=== PATIENT | female | born 1940 | race Caucasian/White ===

== ENCOUNTER 2016-11-22 16:05 | Observation (INO) | payer OTHER ==
[~2016-11-22] VITALS: Ht 165.1 cm; Wt 101.5 kg
[~2016-11-22 16:05] MED LIST: AMBIEN10 MG PO; BENTYL10 MG PO; BUSPIRONE HCL15 MG PO; LEXAPRO20 MG PO; LYRICA75 MG PO; MELOXICAM15 MG PO; METFORMIN HCL500 MG PO; MIRALAX255 GM PO; NEXIUM40 MG PO; NORCO 5/3251 TABLET PO; OXYCODONE-APAP1 EACH PO; OXYCONTIN60 MG PO; SYNTHROID25 MCG PO
[2016-11-22 17:33] LABS: HEMATOCRIT 44.3 % (36.0-46.0); MCH 28.8 PG (29.0-34.0); MCHC 32.3 G/DL (30.0-36.0); MCV 89.1 FL (83-99); MEAN PLAT.VOLUME 10.1 uM^3 (9.5-12.4); PLATELET COUNT 254 K/uL (156-360); RBC DIS.WIDTH-CV 12.4 % (11.8-14.6); RBC DIS.WIDTH-SD 40.6 % (39-53); RED BLOOD COUNT 4.97 M/uL (3.80-5.20); WHITE BLOOD COUNT 13.5 K/uL (4.1-10.2)
[2016-11-22 20:12] LABS: CHLORIDE 104 mEq/L (99-109); POTASSIUM 4.7 mEq/L (3.7-5.4); SODIUM 139 mEq/L (136-147)
[2016-11-22 20:14] LABS: GLUCOSE 116 mg/dL (70-99)
[2016-11-22 20:16] LABS: ANION GAP 10 MEQ/L (2-14); TOTAL BILIRUBIN 0.4 mg/dL (0.0-1.0)
[2016-11-22 20:18] LABS: ALKALINE PHOSPHATASE 95 IU/L (3-129); GFR ESTIMATE (CALCULATED) > 59 mL/min/
[2016-11-22 20:19] LABS: UREA NITROGEN (BUN) 23 mg/dL (9-23)
[2016-11-22 20:21] LABS: LIPASE 449 U/L (1.0-51.0)
[2016-11-22 22:11] LABS: ADD MIUA? YES; BILIRUBIN NEGATIVE; BLOOD NEGATIVE; COLOR YELLOW ((YELLOW)); GLUCOSE (STRIP) NEGATIVE; KETONES NEGATIVE; LEUKOCYTES LARGE; NITRITE NEGATIVE; PROTEIN (STRIP) NEGATIVE; UROBILINOGEN 0.2 MG/DL (0.2-1.0)
[2016-11-22 22:20] LABS: BACTERIA RARE /HPF; EPITHELIAL CELLS 1+ /HPF; MUCUS NONE SEEN /LPF; UCUL ADDED? NO; WHITE BLOOD CELLS 40-50 /HPF (0-5)
[2016-11-22 22:39] LABS: SPECIFIC GRAVITY 1.091 (1.000-1.030)
[2016-11-22] MEDS ORDERED: JANUVIA100 MG PO (22:53)
[2016-11-22] MEDS ORDERED: METFORMIN HCL1000 MG PO (22:53)
[2016-11-22] MEDS ORDERED: RESTASIS 01 DROP/0.4 BOTH EYES (22:53)
[2016-11-22] MEDS ORDERED: ACTONEL150 MG PO (22:54)
[2016-11-23 00:50] LABS: POINT-OF-CARE METER ID UU13113800
[2016-11-23 01:30] VITALS: BP 130/90
[2016-11-23 04:07] VITALS: BP 154/71
[2016-11-23 06:38] VITALS: BP 185/85
[2016-11-23 06:46] LABS: EOSINOPHIL (%) 1.6 % (0-5); EOSINOPHIL COUNT 0.2 K/uL (0-0.3); HEMATOCRIT 37.4 % (36.0-46.0); IMMATURE GRANULOCYTE (%) 0.5 % (0.0-0.7); IMMATURE GRANULOCYTE COUNT 0.1 K/uL; INSTRUMENT ABS NEUTROPHIL CT 8.6 K/uL; LYMPHOCYTE COUNT 4.2 K/uL (1.0-2.8); MCH 30.3 PG (29.0-34.0); MCHC 34.2 G/DL (30.0-36.0); MCV 88.6 FL (83-99); MEAN PLAT.VOLUME 10.3 uM^3 (9.5-12.4); MONOCYTE (%) 6.2 % (3-12); MONOCYTE COUNT 0.9 K/uL (0-0.8); NEUTROPHIL (%) 61.4 % (45-76); NEUTROPHIL COUNT 8.6 K/uL (1.8-6.4); PLATELET COUNT 205 K/uL (156-360); RBC DIS.WIDTH-CV 12.6 % (11.8-14.6); RED BLOOD COUNT 4.22 M/uL (3.80-5.20)
[2016-11-23 07:08] LABS: TRIGLYCERIDES 64 MG/DL (Normal: <150)
[2016-11-23 11:02] VITALS: BP 154/83
[2016-11-23 14:56] VITALS: BP 127/64
[2016-11-23] MEDS ORDERED: AMLODIPINE BESYL5 MG PO (16:34)
[2016-11-23] MEDS ORDERED: AUGMENTIN875 MG PO (16:35)
== END 2016-11-23 19:14 | disposition home or self-care (01) ==
LOC: EME 16:05 → 2EASTP 23:32 → EDOF 23:32 → 2EASTP 23:32
PROVIDERS: Hospitalist; Internal Medicine; Physician Assistant Medical
DX: K85.90 Acute pancreatitis without necrosis or infection, unspecified (principal); K42.9 Umbilical hernia without obstruction or gangrene; K59.00 Constipation, unspecified; E11.9 Type 2 diabetes mellitus without complications; E66.9 Obesity, unspecified; E03.9 Hypothyroidism, unspecified; F41.9 Anxiety disorder, unspecified; F32.9 Major depressive disorder, single episode, unspecified; K74.60 Unspecified cirrhosis of liver
CPT/HCPCS: 74177; 74183; 80053; 81003; 82948; 83690; 84478; 85025; 85027; 87086; 99281; 99285; G0378; J0696; J1815; J7030; J7050; J7120

== ENCOUNTER 2017-01-02 10:50 | Day surgery (SDC) | payer OTHER ==
[~2017-01-02] VITALS: Ht 165.1 cm; Wt 101.2 kg
[~2017-01-02 10:50] MED LIST changes: +ACTONEL150 MG PO; +AMLODIPINE BESYL5 MG PO; +AUGMENTIN875 MG PO; +JANUVIA100 MG PO; +METFORMIN HCL1000 MG PO; +RESTASIS 01 DROP/0.4 BOTH EYES; +SILENOR3 MG PO
[2017-01-02 11:33] LABS: POINT-OF-CARE METER ID UU13113694
[2017-01-02 11:50] VITALS: BP 159/74
[2017-01-02] MEDS ORDERED: NORCO 5/3251 TABLET PO (15:11)
[2017-01-02 15:45] LABS: POINT-OF-CARE METER ID UU13113675
[2017-01-02 18:22] VITALS: BP 151/77
[2017-01-02 19:28] VITALS: BP 165/74
== END 2017-01-02 19:28 | disposition home or self-care (01) ==
LOC: SDC 10:50
PROVIDERS: Surgery
PROC: 0WUF4JZ Supplement Abdominal Wall with Synthetic Substitute, Percutaneous Endoscopic Approach (ICD-10-PCS; principal; 2017-01-02)
DX: K43.2 Incisional hernia without obstruction or gangrene (principal); E11.9 Type 2 diabetes mellitus without complications; I10 Essential (primary) hypertension; E03.9 Hypothyroidism, unspecified; C85.90 Non-Hodgkin lymphoma, unspecified, unspecified site; E66.9 Obesity, unspecified; Z68.37 Body mass index [BMI] 37.0-37.9, adult; Z79.84 Long term (current) use of oral hypoglycemic drugs
CPT/HCPCS: 82948; J0330; J1170; J2405; J3010; J3370; S0020